=== PATIENT | female | born 1965 | race Caucasian/White ===

== ENCOUNTER 2017-06-12 13:01 | Inpatient (IN) | payer OTHER ==
[2017-06-12 13:01] VITALS: BMI 33.5
--- NOTE | 2017-06-12 13:24 | ED PDOC ---
Arrival/HPI - General Chief Complaint: Psychiatric Evaluation Time Seen by Provider: 06/12/17 13:03 Historian: Patient - History of Present Illness Narrative History of Present Illness (Text): 06/12/17 13:21 A 51 year old female with no known past medical history, presents to the emergency department from the [facility]. She was brought in for depression and hearing voices. The patient denies denies fevers, chills, headache, dizziness, sore throat, cough, chest pain, shortness of breath, dyspnea on exertion, abdominal pain, nausea, vomiting, diarrhea, neck pain, back pain, urinary/bowel changes, or any other complaints. Time/Duration: Prior to Arrival Symptom Onset: Sudden Symptom Course: Unchanged Activities at Onset: Rest, Light Context: Other ([facility]) Past Medical History - Provider Review Nursing Documentation Reviewed: Yes - Infectious Disease Hx of Infectious Diseases: None - Tetanus Immunization Tetanus Immunization: Unknown - Cardiac Hx Cardiac Disorders: No - Pulmonary Hx Respiratory Disorders: No - Neurological Hx Neurological Disorder: No - HEENT Hx HEENT Disorder: No - Renal Hx Renal Disorder: No - Endocrine/Metabolic Hx Endocrine Disorders: No - Hematological/Oncological Hx Blood Disorders: No - Integumentary Hx Dermatological Disorder: No - Musculoskeletal/Rheumatological Hx Musculoskeletal Disorders: No - Gastrointestinal Hx Gastrointestinal Disorders: No - Genitourinary/Gynecological Hx Genitourinary Disorders: No - Psychiatric Hx Schizophrenia: Yes Hx Substance Use: No - Anesthesia Hx Anesthesia Reactions: No Hx Malignant Hyperthermia: No Family/Social History - Physician Review Nursing Documentation Reviewed: Yes Family/Social History: No Known Family HX Smoking Status: Never Smoked Hx Alcohol Use: No Hx Substance Use: No Allergies/Home Meds Allergies/Adverse Reactions: Allergies TOMATOES Allergy (Intermediate, Uncoded 06/12/17 13:13) RASH KAILEY SIU STATES SHE IS NOT ALLERGIC Home Medications: Home Meds Medication Instructions Recorded Confirmed Benztropine [Cogentin] 1 mg PO BID 03/07/16 06/12/17 Risperidone [Risperdal Consta] 1 tab PO TID 07/17/16 06/12/17 Divalproex [Depakote] 500 mg PO BID 06/12/17 06/12/17 Review of Systems - Physician Review All systems were reviewed & negative as marked: Yes - Review of Systems Constitutional: absent: Fevers, Night Sweats Respiratory: absent: SOB, Cough Cardiovascular: absent: Chest Pain Gastrointestinal: absent: Abdominal Pain, Stool Changes, Diarrhea, Nausea, Vomiting Genitourinary Female: absent: Urine Output Changes Musculoskeletal: absent: Back Pain, Neck Pain Neurological: absent: Headache, Dizziness Psychiatric: Depression, Other (Hearing Voices) Physical Exam Vital Signs Reviewed: Yes Vital Signs Temp Pulse Resp BP Pulse Ox 06/12/17 13:09 97.6 F 72 16 128/93 H 97 Temperature: Afebrile Blood Pressure: Hypertensive Pulse: Regular Respiratory Rate: Normal Appearance: Positive for: Well-Appearing, Non-Toxic, Comfortable Pain Distress: None Mental Status: Positive for: Alert and Oriented X 3 - Systems Exam Head: Present: Atraumatic, Normocephalic Pupils: Present: PERRL Extroacular Muscles: Present: EOMI Conjunctiva: Present: Normal Mouth: Present: Moist Mucous Membranes Neck: Present: Normal Range of Motion Respiratory/Chest: Present: Clear to Auscultation, Good Air Exchange. No: Respiratory Distress, Accessory Muscle Use Cardiovascular: Present: Regular Rate and Rhythm, Normal S1, S2. No: Murmurs Abdomen: Present: Normal Bowel Sounds. No: Tenderness, Distention, Peritoneal Signs Back: Present: Normal Inspection Upper Extremity: Present: Normal Inspection. No: Cyanosis, Edema Lower Extremity: Present: Normal Inspection. No: Edema Neurological: Present: GCS=15, CN II-XII Intact, Speech Normal Skin: Present: Warm, Dry, Normal Color. No: Rashes Psychiatric: Present: Alert, Oriented x 3, Normal Insight, Normal Concentration Medical Decision Making ED Course and Treatment: 06/12/17 13:25 Impression: A 51 year old female presents to the emergency department from the [facility] floor for depression and hearing voices. Plan: -- EKG -- Chest X-ray -- Urinalysis -- Labs -- Reassess and disposition Prior Visits: Notes and results from previous visits were reviewed. On 03/07/2016. The patient presented to the emergency department for an evaluation of several week duration bilateral feet swelling. Progress Notes: 06/12/17 14:43: Patient is medically clear. - Lab Interpretations Lab Results: 06/12/17 13:30 06/12/17 13:30 Lab Results 06/12/17 13:30: Alcohol, Quantitative < 10 06/12/17 13:30: Salicylates < 1 L, Acetaminophen < 10.0 L 06/12/17 13:30: Urine Opiates Screen Negative, Urine Methadone Screen Negative, Ur Barbiturates Screen Negative, Ur Phencyclidine Scrn Negative, Ur Amphetamines Screen Negative, U Benzodiazepines Scrn Negative, U Oth Cocaine Metabols Negative, U Cannabinoids Screen Negative 06/12/17 13:30: Sodium 139, Potassium 3.7, Chloride 98, Carbon Dioxide 28, Anion Gap 17, BUN 9, Creatinine 0.6 L, Est GFR ( Amer) > 60, Est GFR (Non -Af Amer) > 60, Random Glucose 99, Calcium 9.1, Total Bilirubin 0.5, AST 27, ALT 39, Alkaline Phosphatase 52, Total Protein 7.4, Albumin 4.1, Globulin 3.3, Albumin/Globulin Ratio 1.2 06/12/17 13:30: Urine Color Yellow, Urine Appearance Clear, Urine pH 7.5, Ur Specific [place] 1.010, Urine Protein Negative, Urine Glucose (UA) Negative, Urine Ketones Negative, Urine Blood Negative, Urine Nitrate Negative, Urine Bilirubin Negative, Urine Urobilinogen 0.2, Ur Leukocyte Esterase Negative, Urine HCG, Qual Negative 06/12/17 13:30: WBC 6.9 D, RBC 4.40, Hgb 13.1, Hct 39.0, MCV 88.6, MCH 29.8, MCHC 33.6, RDW 12.7, Plt Count 242, MPV 10.5, Gran % 38.2 L, Lymph % (Auto) 44.8 H, [place] % (Auto) 13.5 H, Eos % (Auto) 3.1, Baso % (Auto) 0.4, Gran # 2.62, Lymph # 3.1, [place] # 0.9 H, Eos # 0.2, Baso # 0.03 I have reviewed the lab results: Yes - RAD Interpretation Radiology Orders: 06/12/17 13:14 CHEST PORTABLE [RAD] Stat - EKG Interpretation Interpreted by ED Physician: Yes Type: 12 lead EKG - Scribe Statement The provider has reviewed the documentation as recorded by the Barronibmelissa Wright Provider Scribe Attestation: All medical record entries made by the Scribe were at my direction and personally dictated by me. I have reviewed the chart and agree that the record accurately reflects my personal performance of the history, physical exam, medical decision making, and the department course for this patient. I have also personally directed, reviewed, and agree with the discharge instructions and disposition. Disposition/Present on Arrival - Present on Arrival Any Indicators Present on Arrival: No History of DVT/PE: No History of Uncontrolled Diabetes: No Urinary Catheter: No History of Decub. Ulcer: No History Surgical Site Infection Following: None - Disposition Have Diagnosis and Disposition been Completed?: Yes Diagnosis: Schizophrenia Disposition: HOSPITALIZED Disposition Time: 03:00 Condition: STABLE Forms: Zulu (Chinese)
[2017-06-12 13:37] LABS: BASO # 0.03 K/mm3 (0.0-2.0); BASO % 0.4 % (0.0-3.0); EOS # 0.2 (0.0-0.7); EOS % 3.1 % (1.5-5.0); GRAN # 2.62 (1.4-6.5); GRAN % 38.2 % (50.0-68.0); LYMPH # 3.1 (1.2-3.4); LYMPH % 44.8 % (22.0-35.0); MEAN CELL VOLUME 88.6 fl (80.0-105.0); MEAN CORPUSCULAR HEMOGLOBIN 29.8 pg (25.0-35.0); MEAN CORPUSCULAR HGB CONC 33.6 g/dl (31.0-37.0); MEAN PLATELET VOLUME 10.5 fl (7.0-11.0); MONO # 0.9 (0.1-0.6); MONO % 13.5 % (1.0-6.0); RED CELL DISTRIBUTION WIDTH 12.7 % (11.5-14.5); WHITE BLOOD COUNT 6.9 10^3/ul (4.5-11.0)
[2017-06-12 13:44] LABS: PH,URINE 7.5 (4.7-8.0); URINE BILIRUBIN NEGATIVE (NEGATIVE); URINE BLOOD NEGATIVE (NEGATIVE); URINE GLUCOSE (UA) NEGATIVE (NEGATIVE); URINE KETONE NEGATIVE (NEGATIVE); URINE LEUKOCYTE ESTERASE NEGATIVE Leu/uL (NEGATIVE); URINE PROTEIN NEGATIVE mg/dL (<30 mg/dL); URINE UROBILINOGEN 0.2 E.U./dL (<1 E.U./dL)
[2017-06-12 13:47] LABS: ALB/GLOB RATIO 1.2 (1.1-1.8); ALKALINE PHOSPHATASE 52 U/L (38-126); ALT/SGPT 39 U/L (7-56); AST/SGOT 27 U/L (14-36); BILIRUBIN,TOTAL 0.5 mg/dL (0.2-1.3); BLOOD UREA NITROGEN 9 mg/dL (7-21); CALCIUM 9.1 mg/dL (8.4-10.5); CARBON DIOXIDE 28 mmol/L (21-33); CHLORIDE 98 mmol/L (95-110); GFR AFRICAN-AMERICAN > 60; GLUCOSE,RANDOM 99 mg/dL (70-110); POTASSIUM 3.7 mmol/L (3.6-5.0); SODIUM 139 mmol/L (132-148); TOTAL PROTEIN 7.4 g/dL (5.8-8.3)
[2017-06-12 14:26] LABS: URINE APPEARANCE CLEAR (CLEAR); URINE COLOR YELLOW (YELLOW)
[2017-06-12] MEDS ORDERED: Magnesium Hydroxide Susp 30 ml UD PO PRN (18:23)
[2017-06-12] MEDS ORDERED: Alum-Mag Hydrox-Simethicone Susp (30 mL) PO PRN (18:23)
--- NOTE | 2017-06-12 20:01 | RAD ---
HISTORY: pysch COMPARISON: 04/04/2016 FINDINGS: LUNGS: No active pulmonary disease. PLEURA: No significant pleural effusion identified, no pneumothorax apparent. CARDIOVASCULAR: Normal. OSSEOUS STRUCTURES: No significant abnormalities. VISUALIZED UPPER ABDOMEN: Normal. OTHER FINDINGS: None. IMPRESSION: No active disease.
--- NOTE | 2017-06-12 20:57 | PCM.BM ---
<Sharee Pereira - Last Filed: 06/12/17 21:53> Treatment Plan Problems - Problems identified on initial assessmt Delusions Date Initiated: 06/12/17 Time Initiated: 16:45 Assessment reference: NA Status: Active Altered thought process Date Initiated: 06/12/17 Time Initiated: 16:45 Assessment reference: NA Status: Active agitation Date Initiated: 06/12/17 Time Initiated: 16:45 Assessment reference: NA Status: Referred depression Date Initiated: 06/12/17 Time Initiated: 16:45 Assessment reference: NA Status: Active Treatment assets and liabiliti Patient Assests: cooperative, ADL independent - Milieu Protocol Maintain good personal hygiene: daily Encourage regular showers, daily Remind patient to perform daily oral care, daily Assist patient to perform ADL's Conduct patient checks and document Observation sheet: Q15 minutes Maintain personal safety: every shift Educate patient to report safety concerns to staff, every shift Monitor environment for contraband/sharps Medication safety: Monitor for expected outcome, potential side effects: every shift, Assess barriers to learning: every shift, Assess readiness for medication education: every shift Discharge/Continuing Care - Education Needs Education Needs: Patient Medication, Patient Diagnosis/Disease Process, Patient Coping Skills - Discharge Discharge Criteria: Free of paranoid thoughts, Free of agitation, Normal sleep pattern <Cinthya Lunsford - Last Filed: 06/13/17 08:00> - Diagnosis (1) Schizophrenia Status: Acute Interventions: 06/13/17 08:00 Psychoeducation/psychotherapy Psychopharmacology/adjustment of medications as needed/ monitoring possible side effects Evaluate pt on daily basis Compliance with medications and follow up appointments Long acting medication if pt is noncompliant with pill form Suicide and homicide risk assessment and prevention, coping strategies, safety plan Relapse prevention Reduction of symptoms Improve functional status Possible assertive community treatment Cognitive behavioral therapy Family involvement Possible social skill training as outpatient <Mary Jane Gudino - Last Filed: 06/15/17 14:00>
--- NOTE | 2017-06-12 22:04 | CARD ---
APPROVED REPORT EKG Measurement Heart [id number] MD [id number] <Conclusion> Normal sinus rhythm Nonspecific T wave abnormality Abnormal ECG
[2017-06-13 07:07] LABS: CHOLESTEROL 151 mg/dL (130-200); GLUCOSE,FASTING 88 mg/dL (65-110)
[2017-06-13 07:23] LABS: FREE T4 0.89 ng/dL (0.78-2.19)
[2017-06-13 07:37] LABS: THYROID STIMULATING HORMONE 1.07 mIU/mL (0.46-4.68)
[2017-06-13] MEDS ORDERED: Divalproex 500 mg DR(BID formulation) PO SCH (08:00)
[2017-06-13] MEDS ORDERED: Divalproex 250 mg DR (BID formulation) PO SCH (08:00)
--- NOTE | 2017-06-13 10:19 | PCM.PSYCH ---
Initial Psychiatric Evaluation - Initial Psychiatric Evaluation Type of Admission: Voluntary Legal Status: Capacity (pt has capacity to sign consent for treatment) Chief Complaint (in patient's own words): "I was drinking and drinking my tea, it was bitter taste, why it is happening? I summarized and memorized things..." Patient's Reaction to Hospitalization: pt was admitted for evaluation of worsening psychosis, inability to function, fear of being poisoned. History of Present Illness and Precipitating Events: shortly pt is 51 yo [place]ron[place] Female, long and debilitating h/o schizophrenia vs schizoaffective disorder, multiple psychiatric admissions in the past, most recent was in 2016 in this facility, pt currently under care of ASHOK Mendoza from [facility] who referred patient here in [facility], pt was BIB [facility] [place] due to psychosis/paranoia/depression, pt reported being compliant with medications, follow up appts, pt also was attending IOP program in [facility], but still was not able to function, due to the severity of patients symptoms and disorganized behavior (pt was throwing things in the middle of the night, pt was feeling that she was poisoned by own mother), pt could not be maintained as outpatient setting, needs further evaluation and stabilization in acute psychiatric unit. pt was seen today with SW, good hygiene, good ADLs, pt presented to be disorganized, circumstantial and tangential, very hard to interview because pt has disorganized speech, using neologisms (creating new words), pt also was echolalic. "I was drinking and drinking my tea, it was bitter taste, why it is happening? somebody is trying to do weird things to me, I summarized and memorized things...she said very sad things, she said I don't wear my coat, but go your way, I don't trust, she rushed me up". pt denied v/a/t hallucinations, but obviously paranoid. pt also was grandiose, pt said "I will be on heaven one day, I will take care of everybody, I will be okay", pt denied any thoughts of harming self or others. as per collaterals from pt's niece DAYSI Wardves pt. has been more argumentative w/ immediate family and has had bizarre bx. pt denied using drugs, denied smoking, denied drinking alcohol. pt fills meds in the [facility] pharmacy, called, but closed meds verified by [facility] worker yesterday pt was on depakote 500mg bid cogentin 1mg po bid risperdal 1mg po tid pt is on risperdal consta ? dose will call [facility] to verify last dose and next one PSYCHIATRIC HISTORY Patient reports 2-3 prior admissions. Most recently at [facility] about a year ago and [facility] x 2 few years ago. She denies any hx of SA Abuse: my mother said that "I am not helping her, but I know that I am helping her" SOCIAL HISTORY Patient was born in [facility]. She is single. No kids. Lives with mother, father more than 10 years ago. 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 Patient denies any history of legal issues. She denies issues with drug or alcohol use. Patient also denies nicotine use. Access to the weapons: denied Medical h/o: pt reported being healthy Family h/o: unknown, pt is not sure Treatment goals: "feeling good and going back to my program" pt tolerates meds well, no side effects observed or reported, AIMS 0, no EPS. Labs: 06/12/17 13:30 06/12/17 13:30 Lab Results 06/13/17 06:00: Valproic Acid 36 L 06/13/17 06:00: Free T4 0.89, TSH 3rd Generation 1.07 06/13/17 06:00: Fasting Glucose 88, Triglycerides 83, Cholesterol 151, LDL Cholesterol Direct 89, HDL Cholesterol 50 06/12/17 13:30: Alcohol, Quantitative < 10 06/12/17 13:30: Salicylates < 1 L, Acetaminophen < 10.0 L 06/12/17 13:30: Urine Opiates Screen Negative, Urine Methadone Screen Negative, Ur Barbiturates Screen Negative, Ur Phencyclidine Scrn Negative, Ur Amphetamines Screen Negative, U Benzodiazepines Scrn Negative, U Oth Cocaine Metabols Negative, U Cannabinoids Screen Negative 06/12/17 13:30: Sodium 139, Potassium 3.7, Chloride 98, Carbon Dioxide 28, Anion Gap 17, BUN 9, Creatinine 0.6 L, Est GFR ( Amer) > 60, Est GFR (Non -Af Amer) > 60, Random Glucose 99, Calcium 9.1, Total Bilirubin 0.5, AST 27, ALT 39, Alkaline Phosphatase 52, Total Protein 7.4, Albumin 4.1, Globulin 3.3, Albumin/Globulin Ratio 1.2 06/12/17 13:30: Urine Color Yellow, Urine Appearance Clear, Urine pH 7.5, Ur Specific [place] 1.010, Urine Protein Negative, Urine Glucose (UA) Negative, Urine Ketones Negative, Urine Blood Negative, Urine Nitrate Negative, Urine Bilirubin Negative, Urine Urobilinogen 0.2, Ur Leukocyte Esterase Negative, Urine HCG, Qual Negative 06/12/17 13:30: WBC 6.9 D, RBC 4.40, Hgb 13.1, Hct 39.0, MCV 88.6, MCH 29.8, MCHC 33.6, RDW 12.7, Plt Count 242, MPV 10.5, Gran % 38.2 L, Lymph % (Auto) 44.8 H, [place] % (Auto) 13.5 H, Eos % (Auto) 3.1, Baso % (Auto) 0.4, Gran # 2.62, Lymph # 3.1, [place] # 0.9 H, Eos # 0.2, Baso # 0.03 Vital Signs Temp Pulse Resp BP Pulse Ox 06/13/17 06:54 98.3 F 77 18 110/64 06/12/17 17:00 18 06/12/17 15:56 72 19 123/89 100 06/12/17 13:09 97.6 F 72 16 128/93 H 97 Review of Systems: see Medical consult. 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 Impression: schizoaffective disorder r/o shcizophrenia (most likely) Treatment plan: Milieu/structure/supportive therapy Medical consult appreciated, see medical team note for more detailed info consultation for discharge plan and social issues Med management risperdal increased to 2mg po bid (pt was on 1mg po tid) for psychosis depakote will be continued 500mg po bid for mood stabilization depakote level was low, will f/u on level in a few days to f/u on level and may be pt was noncompliant with meds cogentin 1mg po bid for EPS pt was on risperdal consta will call to [facility] for dose and time confirmation Family involvement Follow up on labs Will monitor closely evaluation for d/c planning Pt was educated about risk/benefits and alternatives of medications, coping strategies (safety plan, suicide prevention), relapse prevention, importance of follow up with psychiatrist and therapist, stay away from drugs/alcohol/smoking Current Medications: Active Medications Generic Name Dose Route Start Last Admin Trade Name Freq PRN Reason Stop Dose Admin Acetaminophen 650 mg 06/12/17 18:22 Tylenol 325mg Tab PO Q6H PRN Pain, moderate (4-7) Al Hydrox/Mg Hydrox/Simethicone 30 ml 06/12/17 18:23 Maalox Plus 30 Ml PO DAILY PRN Indigestion / Heartburn Benztropine Mesylate 1 mg 06/13/17 08:00 Cogentin PO BID HENRRY Divalproex Sodium 500 mg 06/13/17 08:00 Depakote (*Bid*) PO BID HENRRY Lorazepam 1 mg 06/12/17 18:34 Ativan IM Q6H PRN Agitation Protocol Lorazepam 1 mg 06/12/17 18:36 06/12/17 21:11 Ativan PO 1 mg Q6H PRN Administration Agitation Protocol Magnesium Hydroxide 30 ml 06/12/17 18:23 Milk Of Magnesia PO DAILY PRN Constipation Risperidone 1 mg 06/13/17 08:00 Risperdal Tab PO TID HENRRY Protocol Zaleplon 5 mg 06/12/17 22:00 06/12/17 21:11 Sonata PO 5 mg HS PRN Administration Insomnia Ziprasidone 20 mg 06/12/17 18:38 Geodon Cap PO Q6H PRN Agitation Protocol Ziprasidone 20 mg 06/12/17 18:41 Geodon Inj IM Q6H PRN Agitation Protocol Past Psychiatric History - Past Psychiatric History Pertinent Medical Hx (Current Medical&Sleep Prob, Allergies): Allergies Allergy/AdvReac Type Severity Reaction Status Date / Time TOMATOES Allergy Intermediate RASH Uncoded 06/12/17 17:19 Benztropine [Cogentin] 1 mg PO BID 03/07/16 Risperidone [Risperdal Consta] 1 tab PO TID 07/17/16 Divalproex [Depakote] 500 mg PO BID 06/12/17 DSM 5 DX - Recommended/Plan of Treatment Projected ELOS: 7days Prognosis: guarded Discharge Plan and Discharge Criteria: Pt will be not depressed or manic, will be more hopeful, will be not psychotic or anxious, will be not having thoughts of harming self or others, will be tolerating medications well, will not have major side effects, will be able to function, will not pose threat to self or others. - Smoking Cessation Smoking Cessation Initiated: No Reason for not providing: pt denied smoking
[2017-06-13] MEDS: Divalproex 250 mg DR (BID formulation) PO SCH (17:08)
[2017-06-14] MEDS: Divalproex 250 mg DR (BID formulation) PO SCH ×2 (08:35→16:15)
--- NOTE | 2017-06-14 12:06 | PCM.PYCHPN ---
Psychiatric Progress Note - Psychiatric Progress Note Patient seen today, length of contact: 30min Patient Chief Complaint: "I like summarized and memorized things...I feel back again, I feel strong, Iron runs low, staff are here..." Medical Problems: pt is healthy Diagnostic Results: 06/12/17 13:30 06/12/17 13:30 Lab Results 06/13/17 06:00: RPR Nonreactive 06/13/17 06:00: Valproic Acid 36 L 06/13/17 06:00: Free T4 0.89, TSH 3rd Generation 1.07 06/13/17 06:00: Fasting Glucose 88, Triglycerides 83, Cholesterol 151, LDL Cholesterol Direct 89, HDL Cholesterol 50 06/12/17 13:30: Alcohol, Quantitative < 10 06/12/17 13:30: Salicylates < 1 L, Acetaminophen < 10.0 L 06/12/17 13:30: Urine Opiates Screen Negative, Urine Methadone Screen Negative, Ur Barbiturates Screen Negative, Ur Phencyclidine Scrn Negative, Ur Amphetamines Screen Negative, U Benzodiazepines Scrn Negative, U Oth Cocaine Metabols Negative, U Cannabinoids Screen Negative 06/12/17 13:30: Sodium 139, Potassium 3.7, Chloride 98, Carbon Dioxide 28, Anion Gap 17, BUN 9, Creatinine 0.6 L, Est GFR ( Amer) > 60, Est GFR (Non -Af Amer) > 60, Random Glucose 99, Calcium 9.1, Total Bilirubin 0.5, AST 27, ALT 39, Alkaline Phosphatase 52, Total Protein 7.4, Albumin 4.1, Globulin 3.3, Albumin/Globulin Ratio 1.2 06/12/17 13:30: Urine Color Yellow, Urine Appearance Clear, Urine pH 7.5, Ur Specific [place] 1.010, Urine Protein Negative, Urine Glucose (UA) Negative, Urine Ketones Negative, Urine Blood Negative, Urine Nitrate Negative, Urine Bilirubin Negative, Urine Urobilinogen 0.2, Ur Leukocyte Esterase Negative, Urine HCG, Qual Negative 06/12/17 13:30: WBC 6.9 D, RBC 4.40, Hgb 13.1, Hct 39.0, MCV 88.6, MCH 29.8, MCHC 33.6, RDW 12.7, Plt Count 242, MPV 10.5, Gran % 38.2 L, Lymph % (Auto) 44.8 H, [place] % (Auto) 13.5 H, Eos % (Auto) 3.1, Baso % (Auto) 0.4, Gran # 2.62, Lymph # 3.1, [place] # 0.9 H, Eos # 0.2, Baso # 0.03 Vital Signs Temp Pulse Resp BP Pulse Ox 06/14/17 06:57 97.5 F L 76 22 120/74 06/13/17 07:00 97.2 F L 78 18 128/78 06/13/17 06:54 98.3 F 77 18 110/64 06/12/17 17:00 18 06/12/17 15:56 72 19 123/89 100 06/12/17 13:09 97.6 F 72 16 128/93 H 97 DSM 5 Symptoms Update: shortly pt is 51 yo Surinames[place] Female, long and debilitating h/o schizophrenia vs schizoaffective disorder, multiple psychiatric admissions in the past, most recent was in 2015 in this facility, pt currently under care of ASHOK Mendoza from [facility] who referred patient here in [facility], pt was BIB [facility] due to psychosis/paranoia/depression, pt reported being compliant with medications, follow up appts, pt also was attending IOP program in [facility], but still was not able to function. pt was seen next to the nursing station today. good hygiene, good ADLs, pt presented to be disorganized, circumstantial and tangential, very hard to interview because pt has disorganized speech, using neologisms (creating new words), pt also was echolalic. as per staff no behavioral incidents, pt is compliant with meds no signs of agitation or aggression. Review of Systems: see Medical consult. 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 Impression: schizoaffective disorder r/o shcizophrenia (most likely) Treatment plan: Milieu/structure/supportive therapy Medical consult appreciated, see medical team note for more detailed info consultation for discharge plan and social issues Med management risperdal was increased to 2mg po bid (pt was on 1mg po tid) for psychosis depakote 500mg po bid for mood stabilization depakote level was low, will f/u on level in a few days to f/u on level and may be pt was noncompliant with meds cogentin 1mg po bid for EPS pt was on risperdal heber will call to [facility] for dose and time confirmation Family involvement Follow up on labs Will monitor closely evaluation for d/c planning Pt was educated about risk/benefits and alternatives of medications, coping strategies (safety plan, suicide prevention), relapse prevention, importance of follow up with psychiatrist and therapist, stay away from drugs/alcohol/smoking Medication Change: Yes (risperdal and cogentin increased ) Medical Record Reviewed: Yes Consults ordered or reviewed: medical consult called Mental Status Examination - Homicidal Ideation Homicidal Ideation: No
[2017-06-15] MEDS: Divalproex 250 mg DR (BID formulation) PO SCH ×2 (08:56→16:46)
--- NOTE | 2017-06-15 13:49 | PN ---
SUBJECTIVE: The patient is seen and examined on the psychiatric floor. The patient is a 51-year-old female. Currently, no chest pain, no shortness of breath, no nausea, no vomiting. As per psychiatry, the patient has been tolerating treatment and doing much better. PHYSICAL EXAMINATION: VITAL SIGNS: Blood pressure is 124/76, pulse rate is 76, temperature is 98.7 and O2 saturation is 98. HEENT: Normocephalic and atraumatic. Pale conjunctivae with nonicteric sclerae. CARDIOVASCULAR: Regular rate and rhythm. S1 and S2 are appreciated. No S3 noted. LUNGS: Bilateral air entry is positive. No wheezes or rhonchi. ASSESSMENT: Schizoaffective disorder as well as schizophrenia. Did note medication given by the psychiatrist, currently on Ativan as well as Cogentin as well as Depakote as well as Geodon; I will continue this current regimen and follow the patient closely. Kun Gama MD
--- NOTE | 2017-06-15 16:35 | PCM.PYCHPN ---
Psychiatric Progress Note - Psychiatric Progress Note Patient seen today, length of contact: 30min Patient Chief Complaint: "I feel calm and smooth, I feel relief for not having any violent news while on the road, I was feeling the sickness is coming out." Medical Problems: pt is healthy Diagnostic Results: 06/12/17 13:30 06/12/17 13:30 Lab Results 06/13/17 06:00: RPR Nonreactive 06/13/17 06:00: Valproic Acid 36 L 06/13/17 06:00: Free T4 0.89, TSH 3rd Generation 1.07 06/13/17 06:00: Fasting Glucose 88, Triglycerides 83, Cholesterol 151, LDL Cholesterol Direct 89, HDL Cholesterol 50 06/12/17 13:30: Alcohol, Quantitative < 10 06/12/17 13:30: Salicylates < 1 L, Acetaminophen < 10.0 L 06/12/17 13:30: Urine Opiates Screen Negative, Urine Methadone Screen Negative, Ur Barbiturates Screen Negative, Ur Phencyclidine Scrn Negative, Ur Amphetamines Screen Negative, U Benzodiazepines Scrn Negative, U Oth Cocaine Metabols Negative, U Cannabinoids Screen Negative 06/12/17 13:30: Sodium 139, Potassium 3.7, Chloride 98, Carbon Dioxide 28, Anion Gap 17, BUN 9, Creatinine 0.6 L, Est GFR ( Amer) > 60, Est GFR (Non -Af Amer) > 60, Random Glucose 99, Calcium 9.1, Total Bilirubin 0.5, AST 27, ALT 39, Alkaline Phosphatase 52, Total Protein 7.4, Albumin 4.1, Globulin 3.3, Albumin/Globulin Ratio 1.2 06/12/17 13:30: Urine Color Yellow, Urine Appearance Clear, Urine pH 7.5, Ur Specific [place] 1.010, Urine Protein Negative, Urine Glucose (UA) Negative, Urine Ketones Negative, Urine Blood Negative, Urine Nitrate Negative, Urine Bilirubin Negative, Urine Urobilinogen 0.2, Ur Leukocyte Esterase Negative, Urine HCG, Qual Negative 06/12/17 13:30: WBC 6.9 D, RBC 4.40, Hgb 13.1, Hct 39.0, MCV 88.6, MCH 29.8, MCHC 33.6, RDW 12.7, Plt Count 242, MPV 10.5, Gran % 38.2 L, Lymph % (Auto) 44.8 H, [place] % (Auto) 13.5 H, Eos % (Auto) 3.1, Baso % (Auto) 0.4, Gran # 2.62, Lymph # 3.1, [place] # 0.9 H, Eos # 0.2, Baso # 0.03 Vital Signs Temp Pulse Resp BP Pulse Ox 06/14/17 06:57 97.5 F L 76 22 120/74 06/13/17 07:00 97.2 F L 78 18 128/78 06/13/17 06:54 98.3 F 77 18 110/64 06/12/17 17:00 18 06/12/17 15:56 72 19 123/89 100 06/12/17 13:09 97.6 F 72 16 128/93 H 97 DSM 5 Symptoms Update: shortly pt is 51 yo [place] Female, long and debilitating h/o schizophrenia vs schizoaffective disorder, multiple psychiatric admissions in the past, most recent was in 2015 in this facility, pt currently under care of ASHOK Mendoza from [facility] who referred patient here in [facility], pt was BIB [facility] due to psychosis/paranoia/depression, pt reported being compliant with medications, follow up appts, pt also was attending IOP program in [facility], but still was not able to function. pt was seen next at the treatment team meeting, good hygiene, good ADLs, pt presented to be disorganized, circumstantial and tangential, very hard to interview because pt has disorganized speech, using neologisms (creating new words), pt also was echolalic. as per staff no behavioral incidents, pt is compliant with meds no signs of agitation or aggression. Review of Systems: see Medical consult. 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, emotionally labile, pt was tearful, then was smiling, pt looks younger her stated age, good personal hygiene, good ADLs, there is no psychomotor agitation/retardation, speech was: disorganized, overproductive, eye contact:intense at times, mood described: "I feel calm and smooth, I feel relief for not having any violent news while on the road, I was feeling the sickness is coming out.", affect: expanded, thought process:disorganized, thought content: pt denied SI/ HI, pt denied v/a/t hallucinations, obviously psychotic, disorganized, paranoid, fear that she was poisoned, insight/judgment : limited , impulses are unpredictable. Impression: schizoaffective disorder r/o shcizophrenia (most likely) Treatment plan: Milieu/structure/supportive therapy Medical consult appreciated, see medical team note for more detailed info SW consultation for discharge plan and social issues Med management risperdal was increased to 2mg po bid (pt was on 1mg po tid) for psychosis depakote 500mg po bid for mood stabilization depakote level was low, will f/u on level in a few days to f/u on level and may be pt was noncompliant with meds cogentin 1mg po bid for EPS risperdal consta 50mg [id number], next dose will be this Thursday. SW confirmed with [facility] Family involvement Follow up on labs Will monitor closely SW evaluation for d/c planning Pt was educated about risk/benefits and alternatives of medications, coping strategies (safety plan, suicide prevention), relapse prevention, importance of follow up with psychiatrist and therapist, stay away from drugs/alcohol/smoking Medication Change: Yes (risperdal and cogentin increased ) Medical Record Reviewed: Yes Mental Status Examination - Homicidal Ideation Homicidal Ideation: No
[2017-06-16] MEDS: Divalproex 250 mg DR (BID formulation) PO SCH ×2 (08:53→16:40)
--- NOTE | 2017-06-16 09:09 | PN ---
SUBJECTIVE: I saw Arnel, resting comfortably on the chair. She slept fairly well. She is starting to feel little bit better. She is taking her medications. She is eating. She is walking around. PHYSICAL EXAMINATION: VITAL SIGNS: She has a 98.3 temperature, 84 pulse, 125/82 blood pressure, 18 respiratory rate and 98% O2 sat on room air. HEENT: Her head is atraumatic and normocephalic. HEART: Regular rate. LUNGS: Clear to auscultation. ABDOMEN: Soft, obese. EXTREMITIES: No edema. She is here for schizoaffective and schizophrenia, anxiety. She is taking Ativan, Benadryl, Cogentin, Depakote, Geodon, Maalox, milk of magnesia, Risperdal and Tylenol. RPR was nonreactive. Urine drug screen was okay. Urine was clear, not . I reviewed SMA-20, good thyroid of 1.07, good CBC with 6.9 white count, 13.1 hemoglobin, 242 platelets. Continue with aggressive treatment and care as per psychiatry for her problems. We will follow. Sarbjit Joseph DO
--- NOTE | 2017-06-16 16:11 | PCM.PYCHPN ---
Psychiatric Progress Note - Psychiatric Progress Note Patient seen today, length of contact: 30min Patient Chief Complaint: "I feel calm " Medical Problems: pt is healthy Diagnostic Results: 06/12/17 13:30 06/12/17 13:30 Lab Results 06/13/17 06:00: RPR Nonreactive 06/13/17 06:00: Valproic Acid 36 L 06/13/17 06:00: Free T4 0.89, TSH 3rd Generation 1.07 06/13/17 06:00: Fasting Glucose 88, Triglycerides 83, Cholesterol 151, LDL Cholesterol Direct 89, HDL Cholesterol 50 06/12/17 13:30: Alcohol, Quantitative < 10 06/12/17 13:30: Salicylates < 1 L, Acetaminophen < 10.0 L 06/12/17 13:30: Urine Opiates Screen Negative, Urine Methadone Screen Negative, Ur Barbiturates Screen Negative, Ur Phencyclidine Scrn Negative, Ur Amphetamines Screen Negative, U Benzodiazepines Scrn Negative, U Oth Cocaine Metabols Negative, U Cannabinoids Screen Negative 06/12/17 13:30: Sodium 139, Potassium 3.7, Chloride 98, Carbon Dioxide 28, Anion Gap 17, BUN 9, Creatinine 0.6 L, Est GFR ( Amer) > 60, Est GFR (Non -Af Amer) > 60, Random Glucose 99, Calcium 9.1, Total Bilirubin 0.5, AST 27, ALT 39, Alkaline Phosphatase 52, Total Protein 7.4, Albumin 4.1, Globulin 3.3, Albumin/Globulin Ratio 1.2 06/12/17 13:30: Urine Color Yellow, Urine Appearance Clear, Urine pH 7.5, Ur Specific [place] 1.010, Urine Protein Negative, Urine Glucose (UA) Negative, Urine Ketones Negative, Urine Blood Negative, Urine Nitrate Negative, Urine Bilirubin Negative, Urine Urobilinogen 0.2, Ur Leukocyte Esterase Negative, Urine HCG, Qual Negative 06/12/17 13:30: WBC 6.9 D, RBC 4.40, Hgb 13.1, Hct 39.0, MCV 88.6, MCH 29.8, MCHC 33.6, RDW 12.7, Plt Count 242, MPV 10.5, Gran % 38.2 L, Lymph % (Auto) 44.8 H, [place] % (Auto) 13.5 H, Eos % (Auto) 3.1, Baso % (Auto) 0.4, Gran # 2.62, Lymph # 3.1, [place] # 0.9 H, Eos # 0.2, Baso # 0.03 Vital Signs Temp Pulse Resp BP Pulse Ox 06/14/17 06:57 97.5 F L 76 22 120/74 06/13/17 07:00 97.2 F L 78 18 128/78 06/13/17 06:54 98.3 F 77 18 110/64 06/12/17 17:00 18 06/12/17 15:56 72 19 123/89 100 06/12/17 13:09 97.6 F 72 16 128/93 H 97 Laboratory Results - last 72 hr 06/13/17 06/16/17 06:00 07:36 Valproic Acid 79 RPR Nonreactive DSM 5 Symptoms Update: shortly pt is 51 yo [place] Female, long and debilitating h/o schizophrenia vs schizoaffective disorder, multiple psychiatric admissions in the past, most recent was in 2015 in this facility, pt currently under care of ASHOK Mendoza from [facility] who referred patient here in [facility] pt was BIB [facility] due to psychosis/paranoia/depression, pt reported being compliant with medications, follow up appts, pt also was attending IOP program in [facility], but still was not able to function. pt was seen at the TV area today, good hygiene, good ADLs, pt presented to have some improvement with her psychosis, pt was more organized, but still circumstantial and tangential. Depakote level was low at the time of admission, but this health underwriter did not increase dose and level today is above than 70, it means pt most likely was noncompliant with medications. as per staff no behavioral incidents, pt is compliant with meds no signs of agitation or aggression. Review of Systems: see Medical consult. 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 Impression: schizoaffective disorder r/o shcizophrenia (most likely) Treatment plan: Milieu/structure/supportive therapy Medical consult appreciated, see medical team note for more detailed info SW consultation for discharge plan and social issues Med management risperdal 2mg po bid (pt was on 1mg po tid) for psychosis depakote 500mg po bid for mood stabilization at the time of admission depakote level was low 06/16/17 depakote level 79, compliance was ? cogentin 1mg po bid for EPS risperdal consta 50mg [id number], next dose will be this Thursday. SW confirmed with [facility] Family involvement Follow up on labs Will monitor closely SW evaluation for d/c planning Pt was educated about risk/benefits and alternatives of medications, coping strategies (safety plan, suicide prevention), relapse prevention, importance of follow up with psychiatrist and therapist, stay away from drugs/alcohol/smoking Medication Change: Yes (risperdal and cogentin increased ) Medical Record Reviewed: Yes Consults ordered or reviewed: medical consult appreciated Mental Status Examination - Homicidal Ideation Homicidal Ideation: No Goal/Treatment Plan - Goal/Treatment Plan Need for Continued Stay: Remain at risks for inpatient hospitalization, Severe depression anxiety, Discharge may exacerbated symptoms, Severe functional impairment Estimated Date of D/C: 06/22/17
--- NOTE | 2017-06-17 08:51 | PN ---
DATE: SUBJECTIVE: Arnel is in her room. She is doing better. She is feeling better. She is taking the medications. No complaints to me. She is eating. She tells me she is participating and no complaints. Comfortable. She is on Ativan, Benadryl, Cogentin, Depakote, Geodon, Maalox, milk of magnesia, Risperdal, and Tylenol. PHYSICAL EXAMINATION: VITAL SIGNS: Temperature 98.3, 66 pulse, 127/70 blood pressure, 18 respiratory rate, and 98% saturation on room air. HEENT: Head is atraumatic and normocephalic. HEART: Regular rate. LUNGS: Clear to auscultation. ABDOMEN: Soft, obese, and nontender. EXTREMITIES: No edema. LABORATORY DATA: She had a 6.9 white count on 06/12/2017. She had 139 sodium on the 06/12/2017. TSH is 1.07. As per psychiatry, she has a schizoaffective disorder and medication adjustment. As per psychiatry, continue with the aggressive treatment and care. Sarbjit Joseph DO MTDD
[2017-06-17] MEDS: Divalproex 250 mg DR (BID formulation) PO SCH ×2 (08:56→17:40)
--- NOTE | 2017-06-17 14:53 | PCM.PYCHPN ---
Psychiatric Progress Note - Psychiatric Progress Note Patient seen today, length of contact: 30min Patient Chief Complaint: "I am not bad" Medical Problems: pt is healthy Diagnostic Results: 06/12/17 13:30 06/12/17 13:30 Lab Results 06/13/17 06:00: RPR Nonreactive 06/13/17 06:00: Valproic Acid 36 L 06/13/17 06:00: Free T4 0.89, TSH 3rd Generation 1.07 06/13/17 06:00: Fasting Glucose 88, Triglycerides 83, Cholesterol 151, LDL Cholesterol Direct 89, HDL Cholesterol 50 06/12/17 13:30: Alcohol, Quantitative < 10 06/12/17 13:30: Salicylates < 1 L, Acetaminophen < 10.0 L 06/12/17 13:30: Urine Opiates Screen Negative, Urine Methadone Screen Negative, Ur Barbiturates Screen Negative, Ur Phencyclidine Scrn Negative, Ur Amphetamines Screen Negative, U Benzodiazepines Scrn Negative, U Oth Cocaine Metabols Negative, U Cannabinoids Screen Negative 06/12/17 13:30: Sodium 139, Potassium 3.7, Chloride 98, Carbon Dioxide 28, Anion Gap 17, BUN 9, Creatinine 0.6 L, Est GFR ( Amer) > 60, Est GFR (Non -Af Amer) > 60, Random Glucose 99, Calcium 9.1, Total Bilirubin 0.5, AST 27, ALT 39, Alkaline Phosphatase 52, Total Protein 7.4, Albumin 4.1, Globulin 3.3, Albumin/Globulin Ratio 1.2 06/12/17 13:30: Urine Color Yellow, Urine Appearance Clear, Urine pH 7.5, Ur Specific [place] 1.010, Urine Protein Negative, Urine Glucose (UA) Negative, Urine Ketones Negative, Urine Blood Negative, Urine Nitrate Negative, Urine Bilirubin Negative, Urine Urobilinogen 0.2, Ur Leukocyte Esterase Negative, Urine HCG, Qual Negative 06/12/17 13:30: WBC 6.9 D, RBC 4.40, Hgb 13.1, Hct 39.0, MCV 88.6, MCH 29.8, MCHC 33.6, RDW 12.7, Plt Count 242, MPV 10.5, Gran % 38.2 L, Lymph % (Auto) 44.8 H, [place] % (Auto) 13.5 H, Eos % (Auto) 3.1, Baso % (Auto) 0.4, Gran # 2.62, Lymph # 3.1, [place] # 0.9 H, Eos # 0.2, Baso # 0.03 Vital Signs Temp Pulse Resp BP Pulse Ox 06/14/17 06:57 97.5 F L 76 22 120/74 06/13/17 07:00 97.2 F L 78 18 128/78 06/13/17 06:54 98.3 F 77 18 110/64 06/12/17 17:00 18 06/12/17 15:56 72 19 123/89 100 06/12/17 13:09 97.6 F 72 16 128/93 H 97 Laboratory Results - last 72 hr 06/13/17 06/16/17 06:00 07:36 Valproic Acid 79 RPR Nonreactive Temp Pulse Resp BP Pulse Ox 98.3 F 66 18 127/78 98 06/16/17 07:02 06/17/17 07:22 06/17/17 07:22 06/17/17 07:22 06/15/17 06:58 DSM 5 Symptoms Update: shortly pt is 51 yo [place] Female, long and debilitating h/o schizophrenia vs schizoaffective disorder, multiple psychiatric admissions in the past, most recent was in 2016 in this facility, pt currently under care of ASHOK Mendoza from [facility] who referred patient here in [facility], pt was BIB [facility] due to psychosis/paranoia/depression, pt reported being compliant with medications, follow up appts, pt also was attending IOP program in [facility], but still was not able to function. pt was seen at the treatment team meeting room, patient acknowledged that at times she was missing the dose of medication because of "stress", patient was educated to take medication as prescribed, no missing any doses, patient verbalized understanding. Patient still presented to have psychotic symptoms seems to be residual, There is poverty of thoughts and speech. as per staff no behavioral incidents, pt is compliant with meds no signs of agitation or aggression. Review of Systems: see Medical consult. 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 Impression: schizoaffective disorder r/o shcizophrenia (most likely) Treatment plan: Milieu/structure/supportive therapy Medical consult appreciated, see medical team note for more detailed info SW consultation for discharge plan and social issues Med management risperdal 2mg po bid (pt was on 1mg po tid) for psychosis depakote 500mg po bid for mood stabilization at the time of admission depakote level was low 06/16/17 depakote level 79, compliance was ? cogentin 1mg po bid for EPS risperdal consta 50mg [id number], next dose will be this Thursday. SW confirmed with [facility] Family involvement Follow up on labs Will monitor closely SW evaluation for d/c planning Pt was educated about risk/benefits and alternatives of medications, coping strategies (safety plan, suicide prevention), relapse prevention, importance of follow up with psychiatrist and therapist, stay away from drugs/alcohol/smoking Medication Change: No Medical Record Reviewed: Yes Mental Status Examination - Homicidal Ideation Homicidal Ideation: No Goal/Treatment Plan - Goal/Treatment Plan Need for Continued Stay: Remain at risks for inpatient hospitalization, Severe depression anxiety, Discharge may exacerbated symptoms, Severe functional impairment Estimated Date of D/C: 06/22/17
[2017-06-18] MEDS: Divalproex 250 mg DR (BID formulation) PO SCH ×2 (08:47→17:00)
--- NOTE | 2017-06-18 14:15 | PN ---
DATE: SUBJECTIVE: I saw her in the psychiatric floor. She is doing well. She tells me she eating well. She tells me she has taken the medications. Her head is feeling clear. She is in better spirits and is kind of happy. She is on Ativan, Benadryl, Cogentin, Depakote, Geodon, Maalox, milk of magnesia, Risperdal, and Tylenol. PHYSICAL EXAMINATION: VITAL SIGNS: 97.9 temperature, 95 pulse, 114/69 blood pressure, 21 respiratory rate. HEENT: Head is atraumatic and normocephalic. HEART: Regular rate. LUNGS: Clear to auscultation. ABDOMEN: Soft, obese, and nontender. EXTREMITIES: Have no edema. LABORATORY DATA: Labs on 06/12/2017, they were all okay. ASSESSMENT AND PLAN: She is being seen by Psychiatry. We are doing aggressive treatment for her. She has schizoaffective schizophrenia most probably. We will continue aggressive treatment and care as per Psychiatry. We will follow. Sarbjit Joseph DO
--- NOTE | 2017-06-18 16:31 | PCM.PYCHPN ---
Psychiatric Progress Note - Psychiatric Progress Note Patient seen today, length of contact: 30min Patient Chief Complaint: "lets hold it there, I am embarrassed, I had a milk, red cup" Medical Problems: pt is healthy Diagnostic Results: 06/12/17 13:30 06/12/17 13:30 Lab Results 06/13/17 06:00: RPR Nonreactive 06/13/17 06:00: Valproic Acid 36 L 06/13/17 06:00: Free T4 0.89, TSH 3rd Generation 1.07 06/13/17 06:00: Fasting Glucose 88, Triglycerides 83, Cholesterol 151, LDL Cholesterol Direct 89, HDL Cholesterol 50 06/12/17 13:30: Alcohol, Quantitative < 10 06/12/17 13:30: Salicylates < 1 L, Acetaminophen < 10.0 L 06/12/17 13:30: Urine Opiates Screen Negative, Urine Methadone Screen Negative, Ur Barbiturates Screen Negative, Ur Phencyclidine Scrn Negative, Ur Amphetamines Screen Negative, U Benzodiazepines Scrn Negative, U Oth Cocaine Metabols Negative, U Cannabinoids Screen Negative 06/12/17 13:30: Sodium 139, Potassium 3.7, Chloride 98, Carbon Dioxide 28, Anion Gap 17, BUN 9, Creatinine 0.6 L, Est GFR ( Amer) > 60, Est GFR (Non -Af Amer) > 60, Random Glucose 99, Calcium 9.1, Total Bilirubin 0.5, AST 27, ALT 39, Alkaline Phosphatase 52, Total Protein 7.4, Albumin 4.1, Globulin 3.3, Albumin/Globulin Ratio 1.2 06/12/17 13:30: Urine Color Yellow, Urine Appearance Clear, Urine pH 7.5, Ur Specific [place] 1.010, Urine Protein Negative, Urine Glucose (UA) Negative, Urine Ketones Negative, Urine Blood Negative, Urine Nitrate Negative, Urine Bilirubin Negative, Urine Urobilinogen 0.2, Ur Leukocyte Esterase Negative, Urine HCG, Qual Negative 06/12/17 13:30: WBC 6.9 D, RBC 4.40, Hgb 13.1, Hct 39.0, MCV 88.6, MCH 29.8, MCHC 33.6, RDW 12.7, Plt Count 242, MPV 10.5, Gran % 38.2 L, Lymph % (Auto) 44.8 H, Nolan % (Auto) 13.5 H, Eos % (Auto) 3.1, Baso % (Auto) 0.4, Gran # 2.62, Lymph # 3.1, Nolan # 0.9 H, Eos # 0.2, Baso # 0.03 Vital Signs Temp Pulse Resp BP Pulse Ox 06/14/17 06:57 97.5 F L 76 22 120/74 06/13/17 07:00 97.2 F L 78 18 128/78 06/13/17 06:54 98.3 F 77 18 110/64 06/12/17 17:00 18 06/12/17 15:56 72 19 123/89 100 06/12/17 13:09 97.6 F 72 16 128/93 H 97 Laboratory Results - last 72 hr 06/13/17 06/16/17 06:00 07:36 Valproic Acid 79 RPR Nonreactive Temp Pulse Resp BP Pulse Ox 98.3 F 66 18 127/78 98 06/16/17 07:02 06/17/17 07:22 06/17/17 07:22 06/17/17 07:22 06/15/17 06:58 DSM 5 Symptoms Update: shortly pt is 51 yo [place] Female, long and debilitating h/o schizophrenia vs schizoaffective disorder, multiple psychiatric admissions in the past, most recent was in 2016 in this facility, pt currently under care of ASHOK Mendoza from [facility] who referred patient here in [facility], pt was BIB [facility] due to psychosis/paranoia/depression, pt reported being compliant with medications, follow up appts, pt also was attending IOP program in [facility], but still was not able to function. pt was seen next to the nursing station, pt has disorganized thoughts today, but socially appropriate, there is poverty of thoughts and speech. as per staff no behavioral incidents, pt is compliant with meds no signs of agitation or aggression. Review of Systems: see Medical consult. 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 Impression: schizoaffective disorder r/o shcizophrenia (most likely) Treatment plan: Milieu/structure/supportive therapy Medical consult appreciated, see medical team note for more detailed info SW consultation for discharge plan and social issues Med management risperdal 2mg po bid (pt was on 1mg po tid) for psychosis depakote 500mg po bid for mood stabilization at the time of admission depakote level was low 06/16/17 depakote level 79, compliance was ? cogentin 1mg po bid for EPS risperdal consta 50mg [id number], next dose will be this Thursday. SW confirmed with [facility] Family involvement Follow up on labs Will monitor closely SW evaluation for d/c planning Pt was educated about risk/benefits and alternatives of medications, coping strategies (safety plan, suicide prevention), relapse prevention, importance of follow up with psychiatrist and therapist, stay away from drugs/alcohol/smoking Medication Change: No Medical Record Reviewed: Yes Mental Status Examination - Homicidal Ideation Homicidal Ideation: No Goal/Treatment Plan - Goal/Treatment Plan Need for Continued Stay: Remain at risks for inpatient hospitalization, Severe depression anxiety, Discharge may exacerbated symptoms, Severe functional impairment Estimated Date of D/C: 06/22/17
[2017-06-19] MEDS ORDERED: RISPERIDAL Consta 50 MG INJ IM SCH (07:00)
[2017-06-19] MEDS: Divalproex 250 mg DR (BID formulation) PO SCH ×2 (08:23→20:03)
--- NOTE | 2017-06-19 12:02 | PN ---
DATE: SUBJECTIVE: I saw her in the psychiatric floor. She slept well. No acute changes. No chest pain or shortness of breath. She is eating okay, trying to improved. She is little bit off still. She is on Ativan, Benadryl, Cogentin, Depakote, Geodon, Maalox, milk of magnesia, Risperdal, and Tylenol. PHYSICAL EXAMINATION: VITAL SIGNS: She has 97.8 temperature, 81 pulse, 121/72 blood pressure, 18 respiratory rate. HEENT: Head is atraumatic and normocephalic. HEART: Regular rate. LUNGS: Clear to auscultation. ABDOMEN: Soft and obese. EXTREMITIES: No edema. IMPRESSION AND PLAN: She is slowly improving as per psychiatry. I encouraged to participate in groups. Take the medications as per psychiatry. Continue to eat well. Continue with aggressive treatment and care by psychiatry with adjustment of medications. We will follow. She has schizophrenia. Sarbjit Joseph DO
--- NOTE | 2017-06-19 16:33 | PCM.PYCHPN ---
Psychiatric Progress Note - Psychiatric Progress Note Patient seen today, length of contact: 30min Patient Chief Complaint: "lets hold it there, there is a family waiting, I will go to my program" Medical Problems: pt is healthy Diagnostic Results: 06/12/17 13:30 06/12/17 13:30 Lab Results 06/13/17 06:00: RPR Nonreactive 06/13/17 06:00: Valproic Acid 36 L 06/13/17 06:00: Free T4 0.89, TSH 3rd Generation 1.07 06/13/17 06:00: Fasting Glucose 88, Triglycerides 83, Cholesterol 151, LDL Cholesterol Direct 89, HDL Cholesterol 50 06/12/17 13:30: Alcohol, Quantitative < 10 06/12/17 13:30: Salicylates < 1 L, Acetaminophen < 10.0 L 06/12/17 13:30: Urine Opiates Screen Negative, Urine Methadone Screen Negative, Ur Barbiturates Screen Negative, Ur Phencyclidine Scrn Negative, Ur Amphetamines Screen Negative, U Benzodiazepines Scrn Negative, U Oth Cocaine Metabols Negative, U Cannabinoids Screen Negative 06/12/17 13:30: Sodium 139, Potassium 3.7, Chloride 98, Carbon Dioxide 28, Anion Gap 17, BUN 9, Creatinine 0.6 L, Est GFR ( Amer) > 60, Est GFR (Non -Af Amer) > 60, Random Glucose 99, Calcium 9.1, Total Bilirubin 0.5, AST 27, ALT 39, Alkaline Phosphatase 52, Total Protein 7.4, Albumin 4.1, Globulin 3.3, Albumin/Globulin Ratio 1.2 06/12/17 13:30: Urine Color Yellow, Urine Appearance Clear, Urine pH 7.5, Ur Specific [place] 1.010, Urine Protein Negative, Urine Glucose (UA) Negative, Urine Ketones Negative, Urine Blood Negative, Urine Nitrate Negative, Urine Bilirubin Negative, Urine Urobilinogen 0.2, Ur Leukocyte Esterase Negative, Urine HCG, Qual Negative 06/12/17 13:30: WBC 6.9 D, RBC 4.40, Hgb 13.1, Hct 39.0, MCV 88.6, MCH 29.8, MCHC 33.6, RDW 12.7, Plt Count 242, MPV 10.5, Gran % 38.2 L, Lymph % (Auto) 44.8 H, [place] % (Auto) 13.5 H, Eos % (Auto) 3.1, Baso % (Auto) 0.4, Gran # 2.62, Lymph # 3.1, [place] # 0.9 H, Eos # 0.2, Baso # 0.03 Vital Signs Temp Pulse Resp BP Pulse Ox 06/14/17 06:57 97.5 F L 76 22 120/74 06/13/17 07:00 97.2 F L 78 18 128/78 06/13/17 06:54 98.3 F 77 18 110/64 06/12/17 17:00 18 06/12/17 15:56 72 19 123/89 100 06/12/17 13:09 97.6 F 72 16 128/93 H 97 Laboratory Results - last 72 hr 06/13/17 06/16/17 06:00 07:36 Valproic Acid 79 RPR Nonreactive Temp Pulse Resp BP Pulse Ox 98.3 F 66 18 127/78 98 06/16/17 07:02 06/17/17 07:22 06/17/17 07:22 06/17/17 07:22 06/15/17 06:58 Temp Pulse Resp BP Pulse Ox 97.8 F 81 18 121/72 98 06/19/17 07:13 06/19/17 07:13 06/19/17 07:13 06/19/17 07:13 06/15/17 06:58 DSM 5 Symptoms Update: shortly pt is 51 yo [place] Female, long and debilitating h/o schizophrenia vs schizoaffective disorder, multiple psychiatric admissions in the past, most recent was in 2015 in this facility, pt currently under care of ASHOK Mendoza from [facility] who referred patient here in [facility], pt was BIB [facility] due to psychosis/paranoia/depression, pt reported being compliant with medications, follow up appts, pt also was attending IOP program in [facility], but still was not able to function. pt was seen next to the nursing station, pt has disorganized thoughts today, but socially appropriate, there is poverty of thoughts and speech. as per staff no behavioral incidents, pt is compliant with meds no signs of agitation or aggression. pt got her injection of Risperdal 50mg IM today. Review of Systems: see Medical consult. 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 Impression: schizoaffective disorder r/o shcizophrenia (most likely) Treatment plan: Milieu/structure/supportive therapy Medical consult appreciated, see medical team note for more detailed info SW consultation for discharge plan and social issues Med management risperdal 2mg po am and 3mg hs for psychosis depakote 500mg po bid for mood stabilization at the time of admission depakote level was low 06/16/17 depakote level 79, compliance was ? cogentin 1mg po bid for EPS risperdal consta 50mg [id number], was done today June 19, next dose is on July 03. Family involvement Follow up on labs Will monitor closely evaluation for d/c planning Pt was educated about risk/benefits and alternatives of medications, coping strategies (safety plan, suicide prevention), relapse prevention, importance of follow up with psychiatrist and therapist, stay away from drugs/alcohol/smoking Medication Change: Yes (risperdal increased hs) Medical Record Reviewed: Yes Consults ordered or reviewed: medical consult appreciated Mental Status Examination - Homicidal Ideation Homicidal Ideation: No Goal/Treatment Plan - Goal/Treatment Plan Need for Continued Stay: Remain at risks for inpatient hospitalization, Severe depression anxiety, Discharge may exacerbated symptoms, Severe functional impairment Estimated Date of D/C: 06/22/17
[2017-06-20 06:51] VITALS: O2SAT 92
[2017-06-20] MEDS: Divalproex 250 mg DR (BID formulation) PO SCH ×2 (08:03→16:12)
--- NOTE | 2017-06-20 09:11 | PCM.PYCHPN ---
Psychiatric Progress Note - Psychiatric Progress Note Patient seen today, length of contact: 25 min Patient Chief Complaint: "feel all right" Problems Identified/Issues Discussed: I reviewed assessment and recent notes. Patient was interviewed at bedside. Grooming is fair and patient is oriented x3. Reports that she is depressed but "feel all right" now. Affect is cooperative, calm and friendly. Responses are relevant and thought process is coherent. She denies hallucinations or paranoia. Delusions were not elicited today. Patient continues to take her medications and denies side effects, discomfort or pain. Staff notes indicate that patient has been visible and going to groups but with minimal interaction. There were no behavioral issues overnight. Diagnostic Results: schizoaffective disorder r/o schizophrenia (most likely) Medication Change: No ( ) Medical Record Reviewed: Yes Mental Status Examination - Cognitive Function Orientation: Person, Place, Situation Attention: WNL Concentration: Poor Association: Loose - Mood Mood: Depressed ("feel all right") - Affect Affect: Constricted, Other (a little reactive) - Speech Speech: Appropriate - Formal Thought Process Formal Thought Process: No Impairment, Paranoia (None noted during today's interview) - Suicidal Ideation Suicidal Ideation: No - Homicidal Ideation Homicidal Ideation: No Goal/Treatment Plan - Goal/Treatment Plan Need for Continued Stay: Remain at risks for inpatient hospitalization, Severe depression anxiety, Discharge may exacerbated symptoms, Severe functional impairment Progress Toward Problem(s) and Goals/Treatment Plan: * c/w current tx and plan * No new weekend labs thus far * Vitals reviewed and noted below: Selected Entries 06/18/17 06/18/17 06/19/17 07:36 16:35 07:13 Temperature 97.9 F 97.8 F Pulse Rate 95 H 107 H 81 Respiratory 21 18 Rate Blood Pressure 114/59 L 127/63 121/72 Estimated Date of D/C: 06/22/17
--- NOTE | 2017-06-20 13:41 | PN ---
SUBJECTIVE: I saw the patient in the psychiatric floor. She is doing better. She is feeling better. She is sleeping better, taking the medications, maybe a little bit more appropriate also. PHYSICAL EXAMINATION: VITAL SIGNS: She has a 97.8 temp, 65 pulse, 113/75 blood pressure, 16 respiratory rate, 90% of sat on room air. HEENT: Head atraumatic, normocephalic. HEART: Regular rate. LUNGS: Clear to auscultation. ABDOMEN: Soft, obese. EXTREMITIES: No edema. MEDICATIONS: She is currently on Ativan, Benadryl, Cogentin, Depakote, Geodon, Maalox, milk of magnesia, Risperdal, and Tylenol. ASSESSMENT AND PLAN: I do think by talking with her, she is calmer, a little more organized. She is telling me that she would like to leave on Thursday or Thursday. I told her that it is up to psychiatrist and how she continues with groups. I will continue to follow her medically and to treat her schizoaffective disorder, schizophrenia as per psychiatry. Sarbjit Joseph DO
[2017-06-21] MEDS: Divalproex 250 mg DR (BID formulation) PO SCH ×2 (08:42→15:50)
--- NOTE | 2017-06-21 09:10 | PCM.PYCHPN ---
Psychiatric Progress Note - Psychiatric Progress Note Patient seen today, length of contact: 25 min Patient Chief Complaint: Reports that she is depressed but "very good now". Problems Identified/Issues Discussed: I reviewed recent notes and met with patient at bedside. Grooming is fair and patient is oriented x3. Reports that she is depressed but "very good now". Affect is cooperative, calm and friendly. Engagement is superficial. Responses remain relevant to questioning and thought process is fairly coherent. She denies hallucinations or paranoia. Delusions were not elicited today. Patient continues to take her medications and denies side effects, discomfort or pain. Patient has been in good control. Staff notes indicate that patient has been visible and going to groups but quiet with minimal interaction. There were no behavioral issues overnight. Diagnostic Results: schizoaffective disorder r/o schizophrenia (most likely) Medication Change: No ( ) Medical Record Reviewed: Yes Mental Status Examination - Cognitive Function Orientation: Person, Place, Situation Attention: WNL Concentration: Poor Association: Loose - Mood Mood: Depressed ( Reports that she is depressed but "very good now". ) - Affect Affect: Constricted, Other (a little reactive, pleasant) - Speech Speech: Appropriate - Formal Thought Process Formal Thought Process: No Impairment, Paranoia (None noted during today's interview) - Suicidal Ideation Suicidal Ideation: No - Homicidal Ideation Homicidal Ideation: No Goal/Treatment Plan - Goal/Treatment Plan Need for Continued Stay: Remain at risks for inpatient hospitalization, Severe depression anxiety, Discharge may exacerbated symptoms, Severe functional impairment Progress Toward Problem(s) and Goals/Treatment Plan: * c/w current tx and plan * Appreciate f/u by Dr. Joseph on 06/20/17 * No new weekend labs thus far * Vitals reviewed and noted below: Selected Entries 06/19/17 06/20/17 06/20/17 07:13 06:51 18:09 Temperature 97.8 F 97.8 F Pulse Rate 81 65 137 H Respiratory 18 16 Rate Blood Pressure 121/72 113/75 O2 Sat by Pulse 92 L Oximetry Estimated Date of D/C: 06/22/17
--- NOTE | 2017-06-21 15:08 | PN ---
DATE: SUBJECTIVE: I saw Arnel is in her room. She is doing well. She is feeling better. She is eating well. She is participating. She is taking the medications. She tells me that her mind is clearing. MEDICATIONS: She is on Ativan, Benadryl, Cogentin, Depakote, Geodon, Maalox, milk of magnesia, Risperdal, and Tylenol. PHYSICAL EXAMINATION VITAL SIGNS: She has 98.2 temperature, 64 pulse, 107/50 blood pressure, 18 respiratory rate, and 92% of sat on room air. HEENT: Head is atraumatic and normocephalic. Throat is moist. NECK: Supple. HEART: Regular rate. LUNGS: Decreased breath sounds with clear to auscultation. No wheezes, no rhonchi, and no rales. ABDOMEN: Soft and nontender. Positive bowel sounds and obese. EXTREMITIES: No edema. PSYCHIATRIC: She is currently on medications as per psychiatry. LABORATORY DATA: Labs were good. ASSESSMENT AND PLAN: Continue aggressive treatment and care as per psychiatry. She is here for schizo-affective disorder, schizophrenia, and now she improves. Now, she starts to feel better, though we will discharge her. She tells me she wants to [facility] where she sees her friends and the doctors and nurses there. We will check her lab test tomorrow. Will continue her aggressive treatment and care as per psychiatry. Sarbjit Joseph DO
[2017-06-22 06:56] VITALS: BP 131/90; PULSE 77; RESP 22; TEMP 97.8
[2017-06-22 07:31] LABS: HEMATOCRIT 37.8 % (36.0-48.0); MEAN CELL VOLUME 87.1 fl (80.0-105.0); MEAN CORPUSCULAR HGB CONC 34.4 g/dl (31.0-37.0); MEAN PLATELET VOLUME 10.2 fl (7.0-11.0); RED CELL DISTRIBUTION WIDTH 12.6 % (11.5-14.5); WHITE BLOOD COUNT 5.3 10^3/ul (4.5-11.0)
[2017-06-22 07:55] LABS: ALB/GLOB RATIO 1.2 (1.1-1.8); ALKALINE PHOSPHATASE 45 U/L (38-126); ALT/SGPT 40 U/L (7-56); AST/SGOT 32 U/L (14-36); BILIRUBIN,TOTAL 0.5 mg/dL (0.2-1.3); BLOOD UREA NITROGEN 10 mg/dL (7-21); CALCIUM 9.2 mg/dL (8.4-10.5); CARBON DIOXIDE 28 mmol/L (21-33); CHLORIDE 100 mmol/L (98-107); GFR AFRICAN-AMERICAN > 60; GLUCOSE,RANDOM 92 mg/dL (70-110); POTASSIUM 4.5 mmol/L (3.6-5.0); SODIUM 137 mmol/L (132-148); TOTAL PROTEIN 7.2 g/dL (5.8-8.3)
[2017-06-22] MEDS: Divalproex 250 mg DR (BID formulation) PO SCH (07:56)
--- NOTE | 2017-06-22 11:02 | PN ---
SUBJECTIVE: I saw the patient. She is very happy. She was making jewelry. She wanted to show me the jewelry that she made. She is in no distress. She is comfortable. [facility] MEDICATIONS: She is on Ativan, Benadryl, Cogentin, Depakote, Geodon, Maalox, milk of magnesia, Risperdal, and Tylenol. PHYSICAL EXAMINATION: VITAL SIGNS: 97.8 temp, 77 pulse, 131/90 blood pressure, 22 respiratory rate, 92% O2 sat on room air. HEENT: Head atraumatic, normocephalic. HEART: Regular rate. LUNGS: Clear to auscultation. ABDOMEN: Soft, obese. EXTREMITIES: No edema. LABORATORY DATA: She had a 5.3 white count, 13 hemoglobin, 37.8 hematocrit with a 253 platelets today. 137 sodium, potassium 4.5, BUN 10, creatinine 0.6. GFR is greater than 60. Sugar is 92. Calcium is 9.2. Total bilirubin is 0.5, AST is 32, ALT is 40, alkaline phosphatase is 45, total protein is 7.2, albumin is 3.9, and TSH is 1.07. Overall, she started to improve mentally. I think she is doing better. Continue as per Psychiatry. I encourage her to participate in groups. Continued doing pain by jewelry making in the activities and follow as per Psychiatry. We will follow. Sarbjit Joseph DO
--- NOTE | 2017-06-22 15:17 | PCM.PYCHDC ---
Mental Status Examination - Mental Status Examination Orientation: Person, Place, Situation, Time Memory: Intact Mood: Neutral Affect: Constricted Attention: Poor (chronic) Concentration: Poor (chronic) Association: Loose (chronic) Fund of Knowledge: Poor (baseline) Formal Thought Process: Delusions (baseline), Loosening of associations ( baseline) Description of patient's judgement and insight: Pt has improved insight into mental and medical illness, pt was compliant with medications and unit rules and regulations, pt was going to groups, was calm, cooperative, socially appropriate, no behavioral incidents, no agitation, no aggression. Psychotic Thoughts and Behaviors: Pt denied v/a/t hallucinations, advised patient has chronic disorganized thought processes Suicidal Ideation: No Current Homicidal Ideation?: No Plan: pt adamantly denied thoughts of harming self or others denied intent or plan. Discharge Summary - Discharge Note Reason for Hospitalization: pt was admitted for evaluation of worsening psychosis, inability to function, fear of being poisoned. Laboratory Data: Abnormal Lab Results 06/22/17 06/22/17 07:27 07:27 WBC 5.3 D RBC 4.34 Hgb 13.0 Hct 37.8 MCV 87.1 MCH 30.0 MCHC 34.4 RDW 12.6 Plt Count 253 MPV 10.2 Sodium 137 Potassium 4.5 Chloride 100 Carbon Dioxide 28 Anion Gap 14 BUN 10 Creatinine 0.6 L Est GFR ( Amer) > 60 Est GFR (Non-Af Amer) > 60 Random Glucose 92 Calcium 9.2 Total Bilirubin 0.5 AST 32 ALT 40 Alkaline Phosphatase 45 Total Protein 7.2 Albumin 3.9 Globulin 3.3 Albumin/Globulin Ratio 1.2 Consultations:: List each consultation separately and include: 1. Reason for request. 2. Findings. 3. Follow-up Consultations: medical consult appreciated see notes for more detailed information Summary of Hospital Course include:: 1. Description of specific treatment plan utilized for patients during their course of treatmen. 2. Summarize the time- course for resolution of acute symptoms and/or regressed behaviors. 3. Describe issues identified and worked on during hospitalization. 4. Describe medication utilized. 5. Describe medical problems identified and treated. 6. Reassessment of suicide risk Summary of Hospital Course: shortly pt is 51 yo [place] Female, long and debilitating h/o schizophrenia vs schizoaffective disorder, multiple psychiatric admissions in the past, most recent was in 2016 in this facility, pt currently under care of ASHOK Mendoza from [facility] who referred patient here in [facility], pt was BIB [facility] due to psychosis/paranoia/depression, pt reported being compliant with medications, follow up appts, pt also was attending IOP program in [facility], but still was not able to function, due to the severity of patients symptoms and disorganized behavior (pt was throwing things in the middle of the night, pt was feeling that she was poisoned by own mother), pt could not be maintained as outpatient setting, needs further evaluation and stabilization in acute psychiatric unit. initiallypt was seen with SW, good hygiene, good ADLs, pt presented to be disorganized, circumstantial and tangential, very hard to interview because pt has disorganized speech, using neologisms (creating new words), pt also was echolalic. "I was drinking and drinking my tea, it was bitter taste, why it is happening? somebody is trying to do weird things to me, I summarized and memorized things...she said very sad things, she said I don't wear my coat, but go your way, I don't trust, she rushed me up". pt denied v/a/t hallucinations, but obviously paranoid. pt also was grandiose, pt said "I will be on heaven one day, I will take care of everybody, I will be okay", pt denied any thoughts of harming self or others. as per collaterals from pt's niece ED Marii Espinalsalves pt. has been more argumentative w/ immediate family and has had bizarre bx. pt denied using drugs, denied smoking, denied drinking alcohol. pt fills meds in the [facility] pharmacy, called, but closed meds verified by PES worker yesterday pt was on depakote 500mg bid cogentin 1mg po bid risperdal 1mg po tid pt is on risperdal consta 50 mg every 2 weeks which was confirmed by [facility] to mental health PSYCHIATRIC HISTORY Patient reports 2-3 prior admissions. Most recently at [facility] about a year ago and [facility] x 2 few years ago. She denies any hx of SA Abuse: my mother said that "I am not helping her, but I know that I am helping her" SOCIAL HISTORY Patient was born in [facility]. She is single. No kids. Lives with mother, father more than 10 years ago. 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 Patient denies any history of legal issues. She denies issues with drug or alcohol use. Patient also denies nicotine use. Access to the weapons: denied Medical h/o: pt reported being healthy Family h/o: unknown, pt is not sure Treatment goals: "feeling good and going back to my program" pt tolerates meds well, no side effects observed or reported, AIMS 0, no EPS. Labs: 06/12/17 13:30 06/12/17 13:30 Lab Results 06/13/17 06:00: Valproic Acid 36 L 06/13/17 06:00: Free T4 0.89, TSH 3rd Generation 1.07 06/13/17 06:00: Fasting Glucose 88, Triglycerides 83, Cholesterol 151, LDL Cholesterol Direct 89, HDL Cholesterol 50 06/12/17 13:30: Alcohol, Quantitative < 10 06/12/17 13:30: Salicylates < 1 L, Acetaminophen < 10.0 L 06/12/17 13:30: Urine Opiates Screen Negative, Urine Methadone Screen Negative, Ur Barbiturates Screen Negative, Ur Phencyclidine Scrn Negative, Ur Amphetamines Screen Negative, U Benzodiazepines Scrn Negative, U Oth Cocaine Metabols Negative, U Cannabinoids Screen Negative 06/12/17 13:30: Sodium 139, Potassium 3.7, Chloride 98, Carbon Dioxide 28, Anion Gap 17, BUN 9, Creatinine 0.6 L, Est GFR ( Amer) > 60, Est GFR (Non -Af Amer) > 60, Random Glucose 99, Calcium 9.1, Total Bilirubin 0.5, AST 27, ALT 39, Alkaline Phosphatase 52, Total Protein 7.4, Albumin 4.1, Globulin 3.3, Albumin/Globulin Ratio 1.2 06/12/17 13:30: Urine Color Yellow, Urine Appearance Clear, Urine pH 7.5, Ur Specific [place] 1.010, Urine Protein Negative, Urine Glucose (UA) Negative, Urine Ketones Negative, Urine Blood Negative, Urine Nitrate Negative, Urine Bilirubin Negative, Urine Urobilinogen 0.2, Ur Leukocyte Esterase Negative, Urine HCG, Qual Negative 06/12/17 13:30: WBC 6.9 D, RBC 4.40, Hgb 13.1, Hct 39.0, MCV 88.6, MCH 29.8, MCHC 33.6, RDW 12.7, Plt Count 242, MPV 10.5, Gran % 38.2 L, Lymph % (Auto) 44.8 H, [place] % (Auto) 13.5 H, Eos % (Auto) 3.1, Baso % (Auto) 0.4, Gran # 2.62, Lymph # 3.1, [place] # 0.9 H, Eos # 0.2, Baso # 0.03 Vital Signs Temp Pulse Resp BP Pulse Ox 06/13/17 06:54 98.3 F 77 18 110/64 06/12/17 17:00 18 06/12/17 15:56 72 19 123/89 100 06/12/17 13:09 97.6 F 72 16 128/93 H 97 Review of Systems: see Medical consult. patient was stabilized on the following medications: risperdal increased to 2mg po at the morning time and 3 mg at the nighttime for psychosis depakote will be continued 500mg po bid for mood stabilization depakote level was low, but increase slowly, patient most likely was noncompliant with her medications prior to admission cogentin 1mg po bid for EPS pt was on risperdal consta 50 mg IM every 2 weeks patient got Risperdal Consta on June 19 next dose will be on July 03 Family was involved, please see healthcare social worker notes for more detailed information. Patient tolerated medications well, no side effects observed or reported, aims 0 , no EPS. Patient improved significantly, patient became more organized, was socially appropriate, was compliant with the medications, was going to groups, no behavioral incidents, no aggression, no agitation. At the time of the discharge pt denied been depressed, denied thoughts of harming self or others, denied psychotic symptoms, and pt does not appeared to be psychotic, denied been anxious, pt is not in imminent danger to self or others, will be following up at ., information about follow up appointment, time and address provided to the pt, it is patient responsibility to follow up with outpatient clinic, PMD as well as specialists (see SW note for more detailed information). In case pt will need to obtain results of studies pending at discharge pt was provided with contact information of Psychiatric Inpatient unit [phone] as well as Medical Record Department [phone]. patient family came over and pick patient up, was in agreement with d/c plan pt was provided with prescriptions for all of medications (please see medication reconciliation form) Pt was educated about safety plan in case of worsening of symptoms or in case of suicidal or homicidal ideation call 911 or go to the nearest ER, also was educated to take meds as prescribed and stay away from drugs, pt verbalized understanding. - Diagnosis (1) Schizophrenia Status: Chronic Priority: High - Final Diagnosis (DSM 5) Condition upon Discharge: STABLE Disposition: HOME/ ROUTINE Follow-up Treatment Plan: At the time of the discharge pt denied been depressed, denied thoughts of harming self or others, denied psychotic symptoms, and pt does not appeared to be psychotic, denied been anxious, pt is not in imminent danger to self or others, will be following up at ., information about follow up appointment, time and address provided to the pt, it is patient responsibility to follow up with outpatient clinic, PMD as well as specialists (see SW note for more detailed information). In case pt will need to obtain results of studies pending at discharge pt was provided with contact information of Psychiatric Inpatient unit [phone] as well as Medical Record Department [phone]. patient family came over and pick patient up, was in agreement with d/c plan pt was provided with prescriptions for all of medications (please see medication reconciliation form) Pt was educated about safety plan in case of worsening of symptoms or in case of suicidal or homicidal ideation call 911 or go to the nearest ER, also was educated to take meds as prescribed and stay away from drugs, pt verbalized understanding. Prescriptions/Medication Reconciliation: Benztropine [Cogentin] 1 mg PO BID #30 tab DiphenhydrAMINE [Benadryl] 50 mg PO HS #14 cap Divalproex [Depakote DR(*BID*)] 500 mg PO BID #30 tcp Divalproex [Depakote DR (*BID*)] 250 mg PO BID #30 tcp Risperidone [Risperdal] 2 mg PO DAILY #14 tablet Risperidone [Risperdal] 3 mg PO HS #14 tablet Risperidone [RISPERDAL Consta Inj] 1 tab PO Q12D #1 inj - Smoking Cessation Smoking Cessation Medication prescribed: No Reason for not providing: patient doesn't smoke - Antipsychotic Medications Pt discharged on 2 or more routine antipsychotic medications: No
== END 2017-06-22 14:59 | disposition home or self-care (01) | DRG 430 ==
LOC: ED 13:01 → ERH 14:42 → PSYC 16:45
PROVIDERS: ADMIT Psychiatry & Neurology Psychiatry; ATTEND Psychiatry & Neurology Psychiatry
PROC: GZ3ZZZZ Medication Management (ICD-10-PCS; principal; 2017-06-13)
DX: F25.9 Schizoaffective disorder, unspecified (principal); F22 Delusional disorders; F32.9 Major depressive disorder, single episode, unspecified

== ENCOUNTER 2018-04-01 09:55 | Emergency (ER) | payer OTHER ==
[2018-04-01 09:55] VITALS: BMI 33.5
--- NOTE | 2018-04-01 11:11 | ED PDOC ---
Arrival/HPI - General Chief Complaint: Lower Extremity Problem/Injury Time Seen by Provider: 04/01/18 11:08 Historian: Patient, Family - History of Present Illness Narrative History of Present Illness (Text): 04/01/18 11:08 This 52 yo female with pmh Schizophrenia, presents to this ED with family member c/o intermittent leg swelling x 3 weeks. Patient stated right lower leg swelling is more than left lower leg. Patient stated she has seen her PMD, and had a normal physical exam, and labs x 3 weeks ago. Patient has contacted her pmd for leg edema. She was prescribed Lasix 20 mg tab for 5 days. She ran out of medication. Patient denies other somatic complains. Denies sob, cp, palpitation, fever, recent travel, sick contact, dizziness or abnormal gait. Time/Duration: Other Context: Home Past Medical History - Provider Review Nursing Documentation Reviewed: Yes - Infectious Disease Hx of Infectious Diseases: None - Tetanus Immunization Tetanus Immunization: Unknown - Cardiac Hx Cardiac Disorders: No - Pulmonary Hx Respiratory Disorders: No - Neurological Hx Neurological Disorder: No - HEENT Hx HEENT Disorder: No - Renal Hx Renal Disorder: No - Endocrine/Metabolic Hx Endocrine Disorders: No - Hematological/Oncological Hx Blood Disorders: No - Integumentary Hx Dermatological Disorder: No - Musculoskeletal/Rheumatological Hx Musculoskeletal Disorders: No - Gastrointestinal Hx Gastrointestinal Disorders: No - Genitourinary/Gynecological Hx Genitourinary Disorders: No - Psychiatric Hx Psychophysiologic Disorder: No Hx Anxiety: Yes Hx Bipolar Disorder: No Hx Depression: Yes Hx Emotional Abuse: No Hx Physical Abuse: No Hx Schizophrenia: Yes Hx Sexual Abuse: No Hx Substance Use: No - Anesthesia Hx Anesthesia: No Hx Anesthesia Reactions: No Hx Malignant Hyperthermia: No Family/Social History - Physician Review Nursing Documentation Reviewed: Yes Family/Social History: Other (noncontributory) Smoking Status: Never Smoked Hx Alcohol Use: No Hx Substance Use: No Allergies/Home Meds Allergies/Adverse Reactions: Allergies TOMATOES Allergy (Intermediate, Uncoded 04/01/18 10:15) RASH KAILEY SIU STATES SHE IS NOT ALLERGIC Home Medications: Home Meds Medication Instructions Recorded Confirmed Ergocalciferol (Vitamin D2) 50,000 unit PO QWK 04/01/18 04/01/18 [Vitamin D2] Review of Systems - Review of Systems Constitutional: Normal. absent: Fatigue, Weight Change, Fevers Eyes: Normal ENT: Normal Respiratory: Normal. absent: SOB, Cough Cardiovascular: Edema. absent: Chest Pain, Palpitations, Calf Pain, MAYER, Orthopnea, Syncope Gastrointestinal: Normal. absent: Abdominal Pain, Nausea, Vomiting Genitourinary Female: Normal. absent: Dysuria, Frequency, Hematuria Musculoskeletal: Normal. absent: Back Pain, Neck Pain Skin: Normal Neurological: Normal. absent: Headache, Dizziness, Focal Weakness, Gait Changes , Speech Changes, Facial Droop, Disequilibrium, Seizure Endocrine: Normal Hemo/Lymphatic: Normal Psychiatric: Normal. absent: Anxiety, Depression, Suicidal Ideation Physical Exam Vital Signs Temp Pulse Resp BP Pulse Ox 04/01/18 12:45 98.1 F 99 H 17 138/78 98 Temperature: Afebrile Blood Pressure: Normal Pulse: Regular Respiratory Rate: Normal Appearance: Positive for: Well-Appearing, Non-Toxic, Comfortable Pain Distress: None Mental Status: Positive for: Alert and Oriented X 3 - Systems Exam Head: Present: Atraumatic, Normocephalic Pupils: Present: PERRL Extroacular Muscles: Present: EOMI Conjunctiva: Present: Normal Mouth: Present: Moist Mucous Membranes Neck: Present: Normal Range of Motion Respiratory/Chest: Present: Clear to Auscultation, Good Air Exchange. No: Respiratory Distress, Accessory Muscle Use, Wheezes, Decreased Breath Sounds, Rales, Retracting, Rhonchi, Tachypneic, Tender to Palpation Cardiovascular: Present: Regular Rate and Rhythm, Normal S1, S2. No: Murmurs Abdomen: No: Tenderness, Distention, Peritoneal Signs, Rebound, Guarding Back: Present: Normal Inspection Upper Extremity: Present: Normal Inspection, Normal ROM, NORMAL PULSES, Neurovascularly Intact. No: Cyanosis, Edema Lower Extremity: Present: Normal Inspection, Edema ((+) b/l lower leg edema, + 1. No calf tenderness. No erythema. No cellulitis), NORMAL PULSES, Normal ROM , Neurovascularly Intact, Capillary Refill < 2 s, Other ((+) b/l lower extremity varicose vein, and Chronic venous insufficiency). No: CALF TENDERNESS , Cyanosis, Ana Maria's Sign, Tenderness, Erythema, Deformity, Temperature Abnormalties Neurological: Present: GCS=15, CN II-XII Intact, Speech Normal, Motor Func Grossly Intact, Normal Sensory Function, Normal Cerebellar Funct, Gait Normal, Memory Normal Skin: Present: Warm, Dry, Normal Color. No: Rashes Psychiatric: Present: Alert, Oriented x 3, Normal Insight, Normal Concentration. No: Anxious, Agitated, Suicidal Ideation, Homicidal Ideation, Delusional, Hallucinations, Intoxicated Medical Decision Making ED Course and Treatment: 04/01/18 13:21 Re-evaluation. Patient feels better. Discussed results and plan with patient who expresses understanding. All questions answered and there is agreement with the plan to discharge home with instructions. Patient stable for discharge. Return if symptoms persist or worsen. Denies SOB, CP, palpitation. Labs were unremarkable. No DVT. No sig of cellulitis. Patient was recommended to f/u pmd in 1-2 days, and to use compression stocking above knees. family and patient requested Lasix. Re-evaluation Time: 13:22 Reassessment Condition: Re-examined, Improved - Lab Interpretations Lab Results: 04/01/18 11:50 04/01/18 11:50 Lab Results 04/01/18 11:50: Sodium 138, Potassium 4.4, Chloride 100, Carbon Dioxide 27, Anion Gap 15, BUN 6 L, Creatinine 0.6 L, Est GFR ( Amer) > 60, Est GFR ( Non-Af Amer) > 60, Random Glucose 106, Calcium 9.5, Magnesium 1.7, Total Bilirubin 0.3, AST 30, ALT 30, Alkaline Phosphatase 47, NT-Pro-B Natriuret Pep 66.6, Total Protein 7.2, Albumin 3.9, Globulin 3.4, Albumin/Globulin Ratio 1.1 04/01/18 11:50: PT 11.6, INR 1.01, APTT 32.9 04/01/18 11:50: WBC 5.6, RBC 4.09, Hgb 12.0, Hct 35.5 L, MCV 86.8, MCH 29.3, MCHC 33.8, RDW 13.0, Plt Count 229, MPV 10.1, Gran % 33.8 L, Lymph % (Auto) 50.6 H, [place] % (Auto) 11.2 H, Eos % (Auto) 3.9, Baso % (Auto) 0.5, Gran # 1.90, Lymph # (Auto) 2.9, [place] # (Auto) 0.6, Eos # (Auto) 0.2, Baso # (Auto) 0.03 I have reviewed the lab results: Yes Interpretation: No clinic. lab abnormalty - RAD Interpretation Narrative RAD Interpretations (Text): 04/01/18 13:31 B/L Lower Extremity Venous Doppler: No DVT as U/S Knee x-rays: No Fx. Radiology Orders: 04/01/18 11:08 DUPLEX LOWER EXTRM VEIN BILAT [US] Stat 04/01/18 11:10 KNEE W PATELLA RIGHT 3 VIEW [RAD] Stat Disposition/Present on Arrival - Present on Arrival Any Indicators Present on Arrival: No History of DVT/PE: No History of Uncontrolled Diabetes: No Urinary Catheter: No History of Decub. Ulcer: No History Surgical Site Infection Following: None - Disposition Have Diagnosis and Disposition been Completed?: Yes Diagnosis: Venous insufficiency of both lower extremities, Varicose veins of both legs with edema Disposition: HOME/ ROUTINE Disposition Time: 13:25 Patient Plan: Discharge Patient Problems: Current Active Problems Problem Status Onset Varicose veins of both legs with edema Acute Venous insufficiency of both lower extremities Acute Condition: GOOD Discharge Instructions (ExitCare): Varicose Veins (DC), Dependent Edema (DC) Additional Instructions: Call private doctor for follow up visit in 1-2 days. You need to have a healthy diet, law salt. Wear compression stocking daily, the one above knees. Return to emergency if symptoms worsen, shortness of breath or chest pain Prescriptions: Furosemide [Lasix] 20 mg PO DAILY PRN #10 tablet PRN Reason: Other Referrals: Ayaan Ram APN [Family Provider] - Follow up with primary Forms: [employer] (Irish)
[2018-04-01 12:00] LABS: BASO # 0.03 K/mm3 (0.0-2.0); BASO % 0.5 % (0.0-3.0); EOS # 0.2 (0.0-0.7); EOS % 3.9 % (1.5-5.0); GRAN # 1.9 (1.4-6.5); GRAN % 33.8 % (50.0-68.0); LYMPH # 2.9 (1.2-3.4); LYMPH % 50.6 % (22.0-35.0); MEAN CELL VOLUME 86.8 fl (80.0-105.0); MEAN CORPUSCULAR HEMOGLOBIN 29.3 pg (25.0-35.0); MEAN CORPUSCULAR HGB CONC 33.8 g/dl (31.0-37.0); MEAN PLATELET VOLUME 10.1 fl (7.0-11.0); MONO # 0.6 (0.1-0.6); MONO % 11.2 % (1.0-6.0); RBC 4.09 10^6/uL (3.5-6.1); WHITE BLOOD COUNT 5.6 10^3/ul (4.5-11.0)
[2018-04-01 12:17] LABS: INR 1.01 (0.93-1.08); PARTIAL THROMBOPLASTIN TIME 32.9 Seconds (25.1-36.5); PROTHROMBIN TIME 11.6 SECONDS (9.4-12.5)
[2018-04-01 12:18] LABS: BLOOD UREA NITROGEN 6 mg/dL (7-21); GFR AFRICAN-AMERICAN > 60; GFR NON-AFRICAN AMERICAN > 60
[2018-04-01 12:19] LABS: ALB/GLOB RATIO 1.1 (1.1-1.8); ALBUMIN 3.9 g/dL (3.0-4.8); ALT/SGPT 30 U/L (7-56); AST/SGOT 30 U/L (14-36); B-TYPE NATRIURETIC PEPTIDE 66.6 pg/mL (0-450); CALCIUM 9.5 mg/dL (8.4-10.5)
[2018-04-01 13:14] VITALS: TEMP 98.1; O2SAT 98
--- NOTE | 2018-04-01 13:55 | RAD ---
Date of service: 04/01/2018 PROCEDURE: Right Knee and patella Radiographs. HISTORY: pain COMPARISON: None. FINDINGS: BONES: Normal. No fracture. JOINTS: Normal. No osteoarthritis. JOINT EFFUSION: None. OTHER FINDINGS: None. IMPRESSION: Normal radiographs of the right knee.
[2018-04-01 14:19] VITALS: BP 136/80; PULSE 92; RESP 18
--- NOTE | 2018-04-04 00:15 | US ---
HISTORY: Leg pain and swelling. Evaluate for DVT PHYSICIAN(S): Curly John MD. TECHNIQUE: Duplex sonography and color-flow Doppler with graded compression were used to evaluate the deep venous systems of both lower extremities. FINDINGS: The visualized deep venous systems of both lower extremities are sonographically normal and compressible. Normal wave forms and augmentation are seen. There is no sonographic evidence for deep venous thrombosis in the visualized segments of both lower extremities. IMPRESSION: No sonographic evidence for deep venous thrombosis in the visualized segments of both lower extremities.
== END 2018-04-01 13:34 | disposition home or self-care (01) ==
LOC: ED 09:55
DX: I83.893 Varicose veins of bilateral lower extremities with other complications (principal); I87.2 Venous insufficiency (chronic) (peripheral)